=== PATIENT | female | born 1995 | race Caucasian/White ===

== ENCOUNTER → 2021-09-12 | Outpatient (CLI) | payer OTHER ==
--- NOTE | 2021-09-12 16:59 | REP ---
INDICATION: DATING AND VIABILITY. COMPARISON: None. TECHNIQUE: Real-time sonographic evaluation of gravid uterus performed. FINDINGS: There is a single living intrauterine gestation. The estimated gestational age is 8 weeks 3 days based on a crown-rump length of 19 mm, EDC 04/21/2022. heart rate 174 beats per minute. Cervix is closed measures 3.7 cm in length. Subchorionic hemorrhage is noted 2.0 x 1.1 x 1.5 cm. Cystic structure of the right ovary measures 2.6 cm in maximum diameter likely representing a corpus luteum. IMPRESSION: Single living intrauterine gestation, estimated gestational age 8 weeks 3 days and EDC 04/21/2022. heart rate 174 beats per minute. Subchorionic hemorrhage noted. <Electronically signed by Xavier Robbins > 09/12/21 0657
== END ==
LOC: M WHC 13:36
PROVIDERS: ATTEND Obstetrics & Gynecology
DX: O09.891 Supervision of other high risk pregnancies, first trimester (principal); Z3A.08 8 weeks gestation of pregnancy; O20.9 Hemorrhage in early pregnancy, unspecified

== ENCOUNTER → 2021-10-04 | Outpatient (CLI) | payer OTHER | LOC: M PLALAB 11:00 | PROVIDERS: ATTEND Obstetrics & Gynecology | DX: Z34.81 Encounter for supervision of other normal pregnancy, first trimester (principal); Z36.89 Encounter for other specified antenatal screening ==

== ENCOUNTER → 2023-03-05 | Outpatient (REF) | payer OTHER | LOC: M LAB REF 12:46 | PROVIDERS: ATTEND Student in an Organized Health Care Education/Training Program | DX: R30.0 Dysuria (principal) ==